=== PATIENT | male | born 1985 | race Asian ===

== ENCOUNTER 2018-01-07 06:29 | Emergency (ER) | payer SELFPAY ==
[~2018-01-07] VITALS: Ht 167.6 cm; Wt 70.0 kg
[2018-01-07 06:34] VITALS: Ht 167.6 cm; Wt 70.0 kg
[2018-01-07 07:31] LABS: BASOPHIL % 0.4 % (0-2); PLATELET COUNT 268 x10^3mcL (130-400); RED CELL DISTRIBUTION WIDTH 12.6 % (11.5-14.5)
[2018-01-07 07:46] LABS: CALCIUM 8.8 mg/dL (8.5-10.1); CARBON DIOXIDE 23.4 mmol/L (21-32); CHLORIDE SERUM 108 mmol/L (98-107); CREATININE SERUM 0.7 mg/dL (0.7-1.3); GFR1 > 60 mL/min; GLUCOSE SERUM 117 mg/dL (74-106); POTASSIUM SERUM 3.7 mmol/L (3.5-5.1); SODIUM SERUM 145 mmol/L (136-145)
[2018-01-07 07:50] LABS: ALKALINE PHOSPHATASE 60 U/L (46-116); ALT/SGPT 61 U/L (16-63); AST/SGOT 35 U/L (15-37); BILIRUBIN TOTAL 0.28 mg/dL (0.20-1.00); LIPASE 78 IU/L (73-393); TOTAL PROTEIN, SERUM 7.5 g/dL (6.4-8.2)
[2018-01-07 07:53] LABS: UA SPECIFIC GRAVITY >=1.030 (1.005-1.035); microscopic required? YES; urine erythrocyte 3+ (NEGATIVE)
[2018-01-07 09:13] VITALS: BP 113/72
== END 2018-01-07 09:14 | disposition home or self-care (01) ==
LOC: ED 06:29
PROVIDERS: Emergency Medicine
DX: N20.0 Calculus of kidney (principal)
CPT/HCPCS: J1885; J7030